=== PATIENT | female | born 1975 | race Two or more races ===

== ENCOUNTER 2023-11-17 10:38 | Day surgery (SDC) | payer BC ==
[~2023-11-17] VITALS: Ht 170.2 cm; Wt 163.3 kg
[2023-11-17] MEDS ORDERED: MIDAZOLAM HCL 2 MG/2 ML VIAL (VERSED) ONE (11:20)
[2023-11-17] MEDS ORDERED: LR 1,000 ML IV.SOLN IV ONE (11:20)
[2023-11-17] MEDS ORDERED: LIDOCAINE/EPI 1% 1:100000 20 ML VIAL ONE (11:20)
[2023-11-17] MEDS ORDERED: ceFAZolin SODIUM 1 GM VIAL ONE (11:20)
[2023-11-17] MEDS ORDERED: ONDANSETRON HCL 4 MG/2 ML VIAL ONE (11:20)
[2023-11-17] MEDS ORDERED: METOCLOPRAMIDE HCL 10 MG/2 ML VIAL ONE (11:20)
[2023-11-17] MEDS ORDERED: fentaNYL CITRATE/PF 100 MCG/2 ML AMP ONE (11:20)
[2023-11-17] MEDS ORDERED: NS IRRIG SOLN 1000 ML IR ONE (11:20)
[2023-11-17] MEDS ORDERED: WATER FOR IRRIGATION,STERILE 1,000 ML IRRIG.SOLN IR ONE (11:20)
[2023-11-17] MEDS ORDERED: ONDANSETRON HCL 4 MG/2 ML VIAL IVP PRN (12:00)
[2023-11-17] MEDS ORDERED: KETOROLAC TROMETHAMINE 30 MG VIAL IVP PRN (12:00)
[2023-11-17] MEDS ORDERED: ACETAMINOPHEN/CODEINE 300 MG-30 MG TABLET PO PRN (12:00)
[2023-11-17] MEDS ORDERED: LR 1,000 ML IV SCH (12:00)
[2023-11-17 12:18] VITALS: O2SAT 96
[2023-11-17 14:48] VITALS: BP_SYST 136; PULSE 71; RESP 18
== END 2023-11-17 14:57 | disposition home or self-care (01) ==
LOC: SDS 10:38 → SMU 10:51 → SDS 14:57
PROVIDERS: ATTEND Otolaryngology Plastic Surgery within the Head & Neck
DX: D37.02 Neoplasm of uncertain behavior of tongue (principal); I10 Essential (primary) hypertension; E66.01 Morbid (severe) obesity due to excess calories; G43.909 Migraine, unspecified, not intractable, without status migrainosus; F32.A Depression, unspecified; G47.33 Obstructive sleep apnea (adult) (pediatric); F41.9 Anxiety disorder, unspecified; Z68.43 Body mass index [BMI] 50.0-59.9, adult; Z98.890 Other specified postprocedural states; Z82.49 Family history of ischemic heart disease and other diseases of the circulatory system; Z83.3 Family history of diabetes mellitus; Z82.61 Family history of arthritis; Z79.899 Other long term (current) drug therapy
CPT/HCPCS: 41113; 88342; 87081; 88304; 88341; J0690; J2765; J3465; J2405; J3010; J7120